=== PATIENT | male | born 1980 | race African-American/Black ===

== ENCOUNTER 2022-09-20 14:31 | Emergency (ER) | payer OTHER ==
[2022-09-20 14:46] VITALS: TEMP 95.6; BMI 30.1
[2022-09-20] MEDS ORDERED: LACTATED RINGERS SOLUTION 1000 ML INFUS.BAG IV ONE (16:10)
[2022-09-20 16:57] LABS: VENOUS BASE EXCESS -4.9 mmol/L (-2-2); VENOUS O2 SATURATION 62.3 % (70-80); VENOUS PCO2 38.4 mmHg (38-52); VENOUS PH 7.341 (7.310-7.410)
[2022-09-20 17:00] LABS: BASO % 0.6 % (0-2.0); EOS % 1.8 % (0-4.5); HEMATOCRIT 44.8 % (35.4-49); MCH 31.3 pg (25.7-33.7); MCHC 33.6 g/dl (32.0-35.9); MEAN CELL VOLUME 93.3 fl (80-96); MEAN PLT VOLUME 7.5 fl (7.5-11.1); MONO % 7.2 % (3.8-10.2); NEUT % 48.4 % (42.8-82.8); PLATELET COUNT 216 10^3/uL (134-434); RDW 13.9 % (11.9-15.9); WHITE BLOOD COUNT 5.7 K/mm3 (4.0-10.0)
[2022-09-20 17:05] LABS: INR 1.11 (0.83-1.09); PROTHROMBIN TIME (PATIENT) 12.8 SEC (9.7-13.0)
[2022-09-20 17:08] LABS: ACTIVATED PTT 37.2 SECONDS (25.2-36.5)
[2022-09-20 17:24] LABS: ALBUMIN 4.2 g/dl (3.4-5.0); BLOOD UREA NITROGEN 8.1 mg/dL (7-18)
[2022-09-20 17:27] LABS: CREATININE 1.1 mg/dL (0.55-1.3); PHOSPHOROUS 3.6 mg/dL (2.5-4.9)
[2022-09-20 17:29] LABS: BILIRUBIN,TOTAL 0.5 mg/dL (0.2-1); TOT PROT 7.9 g/dl (6.4-8.2)
[2022-09-20 17:55] VITALS: BP 138/81; PULSE 88; RESP 20
== END 2022-09-20 20:50 | disposition left against medical advice (07) ==
LOC: JER 14:31 → MERGE 14:31 → JER 20:50
DX: R00.2 Palpitations (principal)
CPT/HCPCS: 0241U-QW; 36415; 71045-TC-FY; 80053; 80307; 82803; 83735; 84100; 84443; 84484; 85025; 85610; 85730; 86850; 86900; 86901; 93005; 93010; 93308; 99285-25

== ENCOUNTER 2023-11-27 10:38 | Emergency (ER) | payer OTHER ==
[2023-11-27 10:59] VITALS: TEMP 98.3; BMI 27.1
[2023-11-27] MEDS ORDERED: chlordiazePOXIDE HCL 25 MG CAPSULE ONE ×2 (11:51→12:44)
[2023-11-27] MEDS: chlordiazePOXIDE HCL 25 MG CAPSULE PO ONE ×2 (11:53→12:48)
[2023-11-28 06:13] VITALS: BP 140/85; PULSE 94; RESP 19
== END 2023-11-27 13:46 | disposition home or self-care (01) ==
LOC: JER 10:38
DX: K14.8 Other diseases of tongue (principal); R00.0 Tachycardia, unspecified; R25.1 Tremor, unspecified; F10.90 Alcohol use, unspecified, uncomplicated
CPT/HCPCS: 99283-25